=== PATIENT | male | born 1950 | race Caucasian/White ===

== ENCOUNTER → 2017-07-22 | Day surgery (SDC) | payer MEDICARE, BC ==
[2017-07-18 12:31] LABS: BASOPHILS # (AUTO) 0.1 (0.0-0.1); BASOPHILS % 0.6 % (0.0-1.0); EOSINOPHILS # (AUTO) 0.5 (0.0-0.4); EOSINOPHILS % 5.7 % (0.0-6.0); HEMATOCRIT 46.3 % (38.2-49.6); HEMOGLOBIN 15.3 g/dL (14.0-18.0); LYMPHOCYTES % 23.8 % (18.0-39.1); MEAN CORPUSCULAR HEMOGLOBIN 32.3 pg (28-32); MEAN CORPUSCULAR VOLUME 97.7 fL (81-99); MONOCYTES # (AUTO) 0.7 (0.2-0.8); MONOCYTES % 7.9 % (4.4-11.3); NEUTROPHILS # (AUTO) 5.1 (2.1-6.9); NEUTROPHILS % 61.5 % (38.7-80.0); PLATELET COUNT 236 x10e3/uL (140-360); RED BLOOD COUNT 4.74 x10e6/uL (4.3-5.7); RED CELL DISTRIBUTION WIDTH 12.7 % (11.7-14.4)
[~2017-07-22] MED LIST: AMLODIPINE BESY10 MG PO; BYSTOLIC10 MG; CELEBREX100 MG PO; FENTANYL CITRATE/PF 100MCG/2 ML INJ ONE; LIDOCAINE HCL 2% LOCAL INJ 5 ML SDV VIAL INJ ONE; MIDAZOLAM HCL 2 MG/2 ML VIAL ONE; NEXIUM40 MG; PROPOFOL IV EMULSION 10 MG/ML 50 ML VIAL ONE; SIMVASTATIN40 MG PO; VIT D3 PO; VYTORIN 10-401 EACH
--- OUTSIDE RECORDS SUMMARY | 2017-07-22 10:29 | XMS REPORT | Clinical Summary ---
Author Author [facility] Organization [facility] Address Unknown Phone Unavailable Care Team Providers Care Leather Belt Maker Name Role Phone Cooper Mendoza MD PCP Allergies Not on File Current Medications Not on file Active Problems Not on file Encounters Date Type Specialty Care Team Description 05/21/2017 Hospital Radiology Donita Mancilla MD Lung mass Encounter 05/16/2017 Transcribe Access Donita Mancilla MD Lung mass (Primary Dx) Orders after 07/21/2016 Social History Tobacco Use Types Packs/Day Years Used Date Never Assessed Sex Assigned at Date Recorded Not on file Last Filed Vital Signs Not on file Plan of Treatment Health Maintenance Due Date Last Done Comments COLONOSCOPY 1999 ZOSTER VACCINE 2009 PNEUMOCOCCAL 2014 POLYSACCHARIDE VACCINE AGE 65 AND OVER PNEUMOCOCCAL-13 2014 INFLUENZA VACCINE 01/14/2017 Results * CT Chest Wo Contrast (05/21/2017 8:54 AM) Specimen Performing Laboratory [facility] [address] [place] [address] Narrative Study:CT CHEST WO CONTRAST History: R91.8 Other nonspecific abnormal finding of lung field, LUNG MASS COMPARISON: None. TECHNIQUE: Multiple axial CT images of the chest performed Without IV contrast.. Coronal and sagittal reconstructions were done. CT imaging was performed with iterative reconstruction technique and/or automated exposure control to reduce radiation dose. FINDINGS: LUNGS: There is no focal consolidation, pleural effusion, or pneumothorax. There is some mild emphysematous changes in the lung apex bilaterally. There is some scarring present in the lingula. In the left lower lobe. A benign- appearing calcified pulmonary nodule present in the right lower lobe. There is no pulmonary mass or suspicious pulmonary nodules. AIRWAYS: No central bronchial or endotracheal lesions are seen. There are some borderline bronchiolectasis in the lower lobes bilaterally. MEDIASTINUM: The thoracic aorta is without aneurysm. The main pulmonary artery is not dilated. Heart is upper normal limits in size. Significant atherosclerotic calcification of the coronary arteries. No significant pericardial effusion is present. No enlarged mediastinal or hilar lymph nodes present. 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 The remaining upper thoracic esophagus is slightly patulous and air-filled. BONES AND OVERLYING SOFT TISSUES: The visualized bones are without destructive lesions. No enlarged axillary lymph nodes present. VISUALIZED LOWER NECK AND UPPER ABDOMEN: Small hypodensities present in the liver the largest in the anterior right hepatic lobe measuring 1 cm with fluid density compatible with a cyst. A right adrenal nodule measures 2.4 cm with low density suggestive of an adrenal adenoma. IMPRESSION: No mass or adenopathy in the chest. [id number] Procedure Note Hm Interface, Radiology Results Incoming - 05/21/2017 11:21 AM [employer] Study:CT CHEST WO CONTRAST History: R91.8 Other nonspecific abnormal finding of lung field, LUNG MASS COMPARISON: None. TECHNIQUE: Multiple axial CT images of the chest performed Without IV contrast.. Coronal and sagittal reconstructions were done. CT imaging was performed with iterative reconstruction technique and/or automated exposure control to reduce radiation dose. FINDINGS: LUNGS: There is no focal consolidation, pleural effusion, or pneumothorax. There is some mild emphysematous changes in the lung apex bilaterally. There is some scarring present in the lingula. In the left lower lobe. A benign- appearing calcified pulmonary nodule present in the right lower lobe. There is no pulmonary mass or suspicious pulmonary nodules. AIRWAYS: No central bronchial or endotracheal lesions are seen. There are some borderline bronchiolectasis in the lower lobes bilaterally. MEDIASTINUM: The thoracic aorta is without aneurysm. The main pulmonary artery is not dilated. Heart is upper normal limits in size. Significant atherosclerotic calcification of the coronary arteries. No significant pericardial effusion is present. No enlarged mediastinal or hilar lymph nodes present. 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 The remaining upper thoracic esophagus is slightly patulous and air-filled. BONES AND OVERLYING SOFT TISSUES: The visualized bones are without destructive lesions. No enlarged axillary lymph nodes present. VISUALIZED LOWER NECK AND UPPER ABDOMEN: Small hypodensities present in the liver the largest in the anterior right hepatic lobe measuring 1 cm with fluid density compatible with a cyst. A right adrenal nodule measures 2.4 cm with low density suggestive of an adrenal adenoma. IMPRESSION: No mass or adenopathy in the chest. [id number] after 07/21/2016 Insurance Payer Benefit Subscriber ID Type Phone Address Plan / Group MEDICARE MEDICARE [id number] Medicare [place], [place] PART A AND B BCBS BCBS [id number] Indemnity [place] [address]
== END | disposition home or self-care (01) ==
LOC: OR 10:26
PROVIDERS: ATTEND Internal Medicine Gastroenterology
DX: K44.9 Diaphragmatic hernia without obstruction or gangrene (principal); K29.70 Gastritis, unspecified, without bleeding; K31.89 Other diseases of stomach and duodenum; B37.81 Candidal esophagitis; K21.9 Gastro-esophageal reflux disease without esophagitis; Z98.0 Intestinal bypass and anastomosis status; E78.5 Hyperlipidemia, unspecified; I10 Essential (primary) hypertension; R05 Cough; F32.9 Major depressive disorder, single episode, unspecified; F41.9 Anxiety disorder, unspecified; I25.2 Old myocardial infarction; K25.9 Gastric ulcer, unspecified as acute or chronic, without hemorrhage or perforation; N20.0 Calculus of kidney; Z01.810 Encounter for preprocedural cardiovascular examination; Z01.812 Encounter for preprocedural laboratory examination; Z85.01 Personal history of malignant neoplasm of esophagus; Z85.038 Personal history of other malignant neoplasm of large intestine; Z85.828 Personal history of other malignant neoplasm of skin; Z87.891 Personal history of nicotine dependence
CPT/HCPCS: 36415; 43239; 85025; 93005; J2001; J2250